=== PATIENT | female | born 2000 | race Caucasian/White ===

== ENCOUNTER 2021-02-08 20:05 | Emergency (ER) | payer OTHER, SELFPAY | END 2021-02-08 20:30 | disposition home or self-care (01) | LOC: CSHERS 20:05 | DX: O9A.211 Injury, poisoning and certain other consequences of external causes complicating pregnancy, first trimester (principal); S30.811A Abrasion of abdominal wall, initial encounter; S20.319A Abrasion of unspecified front wall of thorax, initial encounter; Z3A.01 Less than 8 weeks gestation of pregnancy; V49.40XA Driver injured in collision with unspecified motor vehicles in traffic accident, initial encounter | CPT/HCPCS: G0390 ==